=== PATIENT | female | born 1980 | race Caucasian/White ===

== ENCOUNTER → 2022-08-16 12:59 | Outpatient (CLI) | payer BC, SELFPAY ==
--- NOTE | ~2022-08-16 | US_ITS ---
EXAMINATION: US pelvic complete w TV DATE: 08/16/2022 13:36 INDICATION: Abnormal uterine bleeding Comparison:No prior studies for comparison. TECHNIQUE: Multiple transabdominal and endovaginal sonographic images of the pelvis performed. FINDINGS: The uterus measures 9.7 x 5.4 x 6.5 cm. The endometrial complex measures 5 mm. There is an IUD in the endometrium in the lower uterine segment. The right ovary is surgically absent. The left ovary measures 3.4 x 2.3 x 2.4 cm and contains a 1.7 c m cyst. There is no free fluid in the pelvis. There are no abnormal masses seen on either side. IMPRESSION: 1. IUD present in the endometrium in the lower uterine segment. 2: Left ovarian cyst measuring 1.7 cm. Reviewed, dictated and finalized at location B.
== END ==
PROVIDERS: PCP Family Medicine Sports Medicine; Visit Provider Advanced Practice Midwife
DX: N93.9 Abnormal uterine and vaginal bleeding, unspecified (principal); Z97.5 Presence of (intrauterine) contraceptive device; N83.202 Unspecified ovarian cyst, left side
CPT/HCPCS: 76830; 76856

== ENCOUNTER → 2022-12-19 12:59 | Outpatient (CLI) | payer BC, SELFPAY ==
--- NOTE | ~2022-12-19 | US_ITS ---
EXAMINATION: US pelvic complete w TV DATE: 12/19/2022 13:42 INDICATION: Abnormal vaginal bleeding, assess IUD position TECHNIQUE: Multiple transabdominal and endovaginal sonographic images of the pelvis were obtained. COMPARISON: 08/16/2022 FINDINGS: The uterus measures 9.2 x 4.0 x 5.1 cm. The endometrial complex measures 5 mm. The IUD agai n appears to be located in the lower uterine segment. The right ovary is surgically absent. No right adnexal abnormality is seen. The left ovary measures 2.6 x 1.3 x 2.0 cm. There is normal vascular jenny w in the left ovary. There is no free fluid in the pelvis. IMPRESSION: 1. Malpositioned IUD in the lower uterine segment. Reviewed, dictated and finalized at location L. OF [employer]CH[employer]ISING
== END ==
PROVIDERS: PCP Obstetrics & Gynecology Gynecologic Oncology; Visit Provider Obstetrics & Gynecology Gynecologic Oncology
DX: N93.9 Abnormal uterine and vaginal bleeding, unspecified (principal); T83.32XA Displacement of intrauterine contraceptive device, initial encounter
CPT/HCPCS: 76830; 76856

== ENCOUNTER → 2023-01-21 14:36 | Outpatient (CLI) | payer BC, SELFPAY ==
--- NOTE | ~2023-01-21 | MR_ITS ---
EXAMINATION: MR brain/brain stem wo/w con DATE: 01/21/2023 15:34 INDICATION: Trigeminal neuralgia left side of face. TECHNIQUE: Magnetic resonance imaging (MRI) of the brain and brainstem was performed without and with 20 mL MultiHance intravenous contrast. COMPARISON: None. FINDINGS: There is no intracranial hemorrhage, acute infarction, or abnormal intracranial mass lesion . The ventricles are normal in size. There is mild mucosal thickening in the paranasal sinuses. The m astoid air cells are normal. The orbits are normal. The trigeminal nerves are normal. IMPRESSION: 1. Normal trigeminal nerves. No vascular loop compression. Reviewed, dictated and finalized at location A. DOCTOR
== END ==
PROVIDERS: PCP Family Medicine Sports Medicine; Visit Provider Family Medicine Sports Medicine
DX: G50.0 Trigeminal neuralgia (principal)
CPT/HCPCS: 70553; A9577

== ENCOUNTER → 2023-04-18 14:48 | Outpatient (CLI) | payer BC, SELFPAY ==
--- NOTE | ~2023-04-18 | MR_ITS ---
. EXAMINATION: MR orbits face neck wo con DATE: 04/18/2023 15:48 INDICATION: Trigeminal nerve disorder. Tingling of left side of the face. TECHNIQUE: Magnetic resonance imaging (MRI) of the face was performed without intravenous contrast. COMPARISON: Brain MRI 01/21/2023 FINDINGS: There is no abnormal mass. The orbits are normal. There is mild mucosal thickening in the p aranasal sinuses. The mastoid air cells are normal. IMPRESSION: 1. No etiology for the patient's symptoms. Reviewed, dictated and finalized at location A.
--- NOTE | ~2023-04-18 | MR_ITS ---
EXAMINATION: MR cervical spine wo con DATE: 04/18/2023 15:48 INDICATION: Left face tingling. Trigeminal nerve disorder. TECHNIQUE: Magnetic resonance imaging (MRI) of the cervical spine was performed without intravenous c ontrast. COMPARISON: None FINDINGS: There is 3 mm anterolisthesis of C3 on C4. There is 3 degrees levocurvature of cervical spi ne. Vertebral body heights are normal. There is mildly decreased disc height at C3-C4, severely decre ased disc height at C4-C5 and C5-C6, and moderately decreased disc height at C6-C7. The spinal cord s ignal intensity is normal. The following disc levels are specifically discussed: C2-C3: The disc does not extend beyond the endplate margin. There is moderate left uncovertebral join t osteoarthritis. There is moderate and severe left facet joint osteoarthritis. There is moderate lef t neural foraminal stenosis. There is no central canal stenosis. C3-C4: The disc does not extend beyond the endplate margin. There is moderate bilateral uncovertebral joint osteoarthritis. There is severe bilateral facet joint osteoarthritis. There is moderate right and mild left neural foraminal stenosis. There is mild central canal stenosis. C4-C5: The disc is bulging. There is severe bilateral uncovertebral joint osteoarthritis. There is se ilir bilateral facet joint osteoarthritis. There is mild right and moderate left neural foraminal desire nosis. There is mild central canal stenosis. C5-C6: The disc is bulging. There is severe bilateral uncovertebral joint osteoarthritis. There is mo derate bilateral facet joint osteoarthritis. There is mild right and moderate left neural foraminal s tenosis. There is moderate central canal stenosis. C6-C7: The disc is bulging. There is severe bilateral uncovertebral joint osteoarthritis. There is se ilir bilateral facet joint osteoarthritis. There is mild right and moderate left neural foraminal desire nosis. There is mild central canal stenosis. C7-T1: There is a central extrusion. There is moderate bilateral uncovertebral joint osteoarthritis. There is no facet joint osteoarthritis. There is no neural foraminal stenosis. There is mild central canal stenosis. IMPRESSION: 1. Severe cervical spondylosis. Reviewed, dictated and finalized at location A.
== END ==
PROVIDERS: PCP Internal Medicine; Visit Provider Internal Medicine
DX: G50.9 Disorder of trigeminal nerve, unspecified (principal); M43.02 Spondylolysis, cervical region
CPT/HCPCS: 70540; 72141

== ENCOUNTER → 2023-10-23 12:47 | Outpatient (CLI) | payer BC, SELFPAY ==
--- NOTE | ~2023-10-23 | MR_ITS ---
MRI of the lumbar spine Clinical History: Radiculopathy Technique: Axial T2-weighted images, and sagittal T1-weighted, T2-weighted, and T2 fat-sat images wer e acquired. Findings: There is no fracture or subluxation of the lumbar spine. Vertebral bodies maintain normal h eight and alignment. No bone marrow signal abnormality seen. At L1-L2 and L2-L3, there is no disc bulge or herniation. There are mild to moderate facet joint dege nerative changes. No spinal canal stenosis or neural foraminal narrowing at these levels. L3-L4, there is mild disc bulge with moderate facet arthropathy. No central canal stenosis. There is minimal bilateral neural foraminal narrowing. At L4-L5, there is disc bulge and mild facet arthropathy. No central canal stenosis. There is moderat e left neural foraminal narrowing. There is mild right neural foraminal narrowing. At L5-S1, there is no disc bulge or herniation. There is mild to moderate facet arthropathy. No centr al canal stenosis or neural foraminal narrowing. Paravertebral soft tissues are unremarkable. Impression: Degenerative spondylosis overall, as above. Reviewed, dictated and finalized at location . 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
== END ==
PROVIDERS: PCP Family Medicine Sports Medicine; Visit Provider Family Medicine Sports Medicine
DX: M43.06 Spondylolysis, lumbar region (principal); R20.8 Other disturbances of skin sensation
CPT/HCPCS: 72148

== ENCOUNTER → 2023-11-14 11:10 | Outpatient (CLI) | payer BC, SELFPAY ==
--- NOTE | ~2023-11-14 | MR_ITS ---
EXAMINATION: MR thoracic spine wo con DATE: 11/14/2023 11:54 INDICATION: Mid back pain. Radicular pain. TECHNIQUE: Magnetic resonance imaging (MRI) of the thoracic spine was performed without intravenous c ontrast. COMPARISON: None FINDINGS: There is 6 degrees dextrocurvature of thoracic spine. Vertebral body heights are normal and the thoracic spine. There is mildly decreased disc height atT2-T3 and T3-T4, moderately decreased di sc height at T4-T5, and mildly decreased disc height from T5-T6 through T9-T10. At T3-T4, there is a left central protrusion with mild central canal stenosis. There is multilevel mild facet joint osteoa rthrosis. At T4-T5, there is severe left facet joint osteoarthritis and mild left neural foraminal st enosis. The spinal cord signal intensity is normal. IMPRESSION: 1. Moderate spondylosis at T4-T5 and mild spondylosis at other levels. Reviewed, dictated and finalized at location A. LOTINE TRIMMER
== END ==
PROVIDERS: PCP Family Medicine Sports Medicine; Visit Provider Family Medicine Sports Medicine
DX: R20.8 Other disturbances of skin sensation (principal); M43.04 Spondylolysis, thoracic region
CPT/HCPCS: 72146

== ENCOUNTER → 2023-11-25 13:26 | Outpatient (CLI) | payer BC, SELFPAY ==
--- NOTE | ~2023-11-25 | XR_ITS ---
Clinical Indication: Cough PA and lateral views of the chest: Comparison: None Findings: The lungs are clear, without evidence of focal consolidation or pleural effusion. Cardiome diastinal silhouette is within normal limits. Bones and soft tissues are unremarkable. Impression: Normal chest. Reviewed, dictated and finalized at [facility]. [employer]OR DECORATOR [employer]INTING Impression: Normal chest.
== END ==
PROVIDERS: PCP Family Medicine Sports Medicine; Visit Provider Family Medicine Sports Medicine
DX: R05.9 Cough, unspecified (principal); J18.9 Pneumonia, unspecified organism
CPT/HCPCS: 71046

== ENCOUNTER → 2023-12-11 13:12 | Outpatient (CLI) | payer BC, SELFPAY ==
--- NOTE | ~2023-12-11 | XR_ITS ---
2 XR cervical spine min 6V 12/11/2023 13:31 Indication: Spondylolisthesis. Procedure: 7 views cervical spine Comparison: No prior studies for comparison. Findings: There is degenerative anterolisthesis at C2-3 and C3-4 with retrolisthesis at C5-6. There i s disc narrowing at C3-4 through C6-7. No prevertebral soft tissue swelling. There is advanced multil evel uncinate and facet hypertrophy. Odontoid process is unremarkable. No significant alteration of a lignment with flexion/extension. Impression: 1: Severe cervical spondylosis with reversal of cervical lordosis. Reviewed, dictated and finalized at location L. .NET ARCHITECT Impression: 1: Severe cervical spondylosis with reversal of cervical lordosis.
== END ==
PROVIDERS: PCP Family Medicine Sports Medicine; Visit Provider Nurse Practitioner
DX: M43.12 Spondylolisthesis, cervical region (principal); M40.50 Lordosis, unspecified, site unspecified
CPT/HCPCS: 72052

== ENCOUNTER 2024-05-11 10:10 | Outpatient (CLI) | payer BC, SELFPAY ==
--- NOTE | ~2024-05-11 | XR_ITS ---
Left ankle Technique: AP, oblique, and lateral views were obtained. Clinical History: Injury Findings: No acute fracture or dislocation is seen. Osseous alignment is anatomic. Ankle mortise and other visualized joint spaces are preserved. Soft tissues are otherwise unremarkable. Impression: Unremarkable left ankle. Reviewed, dictated and finalized at location . Impression: Unremarkable left ankle.
== END 2024-05-11 10:11 ==
PROVIDERS: PCP Family Medicine Sports Medicine; Visit Provider Family Medicine Sports Medicine
DX: M25.572 Pain in left ankle and joints of left foot (principal)
CPT/HCPCS: 73610

== ENCOUNTER 2024-05-26 08:10 | Outpatient (CLI) | payer BC, SELFPAY ==
--- NOTE | ~2024-05-26 | MR_ITS ---
MRI of the left ankle Clinical history: Pain Technique: Coronal proton-density and proton-density fat-sat images, axial proton-density and proton- density fat-sat images, and sagittal proton-density and proton-density fat-sat images were acquired. Findings: Syndesmotic ligaments are intact. Posterior talofibular ligament is intact. Anterior talofi bular ligament is probably acutely torn. Calcaneofibular ligament is hyperintense and poorly delineat ed. Deltoid ligament is intact. Medial flexor tendons, peroneal tendons, anterior extensor tendons, and Achilles tendon are intact. T here is mild tenosynovitis of the peroneal tendon sheaths distally. There is no osteochondral lesion of the talar dome. Bone marrow signals are unremarkable. Joint space s are intact. There is tibiotalar joint effusion. There is subtalar joint effusion. Plantar fascia intact. There is subcutaneous soft tissue edema laterally over the ankle. No soft tiss ue mass or fluid collection evident. Impression: Probable acute tear of the anterior talofibular ligament, and probable moderate to severe sprain of t he calcaneofibular ligament. Lateral subcutaneous soft tissue edema. Mild tenosynovitis of the distal peroneal tendon sheaths. Reviewed, dictated and finalized at location . Impression: Probable acute tear of the anterior talofibular ligament, and probable moderate to severe sprain of the calcaneofibular ligament. Lateral subcutaneous soft tissue edema. Mild tenosynovitis of the distal peroneal tendon sheaths.
== END 2024-05-26 08:11 ==
PROVIDERS: PCP Family Medicine Sports Medicine; Visit Provider Family Medicine Sports Medicine
DX: M65.872 Other synovitis and tenosynovitis, left ankle and foot (principal); R60.0 Localized edema
CPT/HCPCS: 73721

== ENCOUNTER 2025-01-13 09:03 | Outpatient (CLI) | payer BC, SELFPAY | END 2025-01-13 09:04 | disposition home or self-care (01) | PROVIDERS: PCP Family Medicine Sports Medicine; Visit Provider Family Medicine Sports Medicine | DX: R10.11 Right upper quadrant pain (principal) | CPT/HCPCS: 76700 ==